=== PATIENT | male | born 2000 | race Caucasian/White ===

== ENCOUNTER 2021-11-05 18:28 | Emergency (ER) | payer OTHER, SELFPAY ==
[2021-11-05 18:46] VITALS: BP 135/69; PULSE 81; RESP 20; TEMP 36.5; O2SAT 100
--- NOTE | 2021-11-05 19:00 | ED.MALEGU ---
HPI - Male Genitourinary General Chief complaint: Urogenital-Male Stated complaint: back pain,blood in urine Time Seen by Provider: 11/05/21 19:00 Source: patient Mode of arrival: ambulatory Limitations: no limitations History of Present Illness HPI Narrative: Kike Ugalde is a 21-year-old male with no PMH who comes to [facility] with left CVA pain and difficulty with urination, he feels sick and has difficulty managing the pain since he got off work. He denies any trauma to his back or any falls or any other pain other than left CVA tenderness and has had difficulty with this urinary stream for the last couple of weeks. I discussed with the patient that this may be a kidney infection versus a bladder infection but he also may have an obstructing renal stone that is causing this level of pain Related Data Allergies Allergy/AdvReac Type Severity Reaction Status Date / Time No Known Allergies Allergy Unknown Verified 11/05/21 18:54 Review of Systems Review of Systems: CONSTITUTIONAL: Denies fever, chills, sweats. EYES: Denies visual changes, redness, discharge. ENT: Denies rhinorrhea, congestion, sore throat, otalgia. CARDIOVASCULAR: Denies chest pain, palpitations, edema. RESPIRATORY: Denies dyspnea, wheezing, cough GASTROINTESTINAL: Denies abdominal pain, nausea, vomiting, diarrhea. Left CVA tenderness GENITOURINARY: Denies dysuria, has hematuria, no abnormal discharge SKIN: Denies rash or itching. NEUROLOGIC: Denies numbness, or focal weakness. PSYCHIATRIC: Denies anxiety or depression. [facility] Past Medical History Medical History Anxiety BMI 27.0-27.9,adult BMI greater than 30 Surgical History Surgical History No history of previous surgery Family History Family History Grandparent Diabetes mellitus Social History Social History Smoking status: Current every day smoker Tobacco type: e-cigarettes/vaping Additional smoking assessment comments: Pt vapes. Alcohol intake: current Alcohol use details: 1 per month Comments At time of signature, I agree with nursing past medical, surgical, social and family history. There is no relevant family history pertinent to the presenting complaint. Exam Narrative: GENERAL: This is a well-nourished, well-developed patient, in moderate distress. HEAD: normocephalic, atraumatic. EYES: Sclera clear/white. Vision is grossly intact. EARS: External ears normal. Hearing grossly intact. NOSE: External nose normal without nasal discharge, nares without redness, no rhinorrhea. THROAT: Mucous membranes moist, posterior pharynx CARDIOVASCULAR: Heartrate 94, and rhythm without murmurs, gallops, or rubs. RESPIRATORY: Clear to auscultation. Breath sounds equal bilaterally. No wheezes, rales, or rhonchi. GASTROINTESTINAL: Abdomen soft, non-tender, but has left CVA tenderness that is 8/10 SKIN: warm, intact with no suspicious lesions or rash, good texture and turgor. NEURO: awake, alert, and oriented to person, place and time. There were no obvious focal neurologic abnormalities. Steady gait EXTREMITIES: Normal range of motion. BACK: Nontender without deformity Course Course Emergency Course: Patient comes to [facility] with left-sided back pain And blood in urine that started this morning. Pain in his back is increased since he got off work to the point that he was tearful UA shows 1+ leukocytes no blood Discussed treatment with patient kidney infection versus bladder infection versus renal stone, given 1 g of Rocephin IM here along with 60 mg of Toradol IM, doxycycline will be called into the pharmacy along with [place]. Patient is to stay home and drink fluids tomorrow and rest; if pain is not improved with these medications, he is to go to his primary ca
[2021-11-05] MEDS: cefTRIAXone 1 GM, LIDOCAINE HCL 1% LOCAL INJ 2.1 ML IM (19:20)
[2021-11-05] MEDS: KETOROLAC (*BKC) 60 MG/2 ML VIAL IM (19:24)
== END 2021-11-05 19:43 | disposition home or self-care (01) ==
PROVIDERS: Emergency Provider Nurse Practitioner; PCP Family Medicine
DX: N10 Acute pyelonephritis (principal)
CPT/HCPCS: 81003; 87086; 96372; 99214; G0463; J0696; J1885